=== PATIENT | male | born 1990 | race Caucasian/White ===

== ENCOUNTER 2017-03-05 15:46 | Emergency (ER) | payer OTHER ==
[2017-03-05] MEDS ORDERED: Cyclopentolate 1% Ophth Soln 5 ML Bottle EYERT ONE (15:50)
[2017-03-05 16:51] VITALS: BP 136/80
--- NOTE | 2017-03-06 05:50 | ER ---
DATE SEEN: 03/05/2017 TIME SEEN: The patient was seen at 1600 hours. HISTORY OF PRESENT ILLNESS: This 26-year-old employee of [employer] at 1430 hours on 03/04/2017 was grinding and he had a hot spark bounce off his protective glasses onto his face and then up into his right eye. His last tetanus was within the last 3 years. He had a laceration to his right distal forearm. The patient is, otherwise, healthy except for he drinks 8 cans of Mountain Dew a day. SOCIAL HISTORY: The patient smokes. PAST MEDICAL HISTORY: No diabetes, heart disease, high blood pressure, asthma, allergies, or other serious illnesses. MEDICATIONS: None. PHYSICAL EXAMINATION: VITAL SIGNS: Blood pressure 152/88, heart rate 80, respirations 14, oxygen saturation 100% on room air, and temperature 36.6 degrees centigrade. HEENT: The patient has scleral injection. Pupils do react to light. EOMs normal. On ophthalmoscopic examination, the retina is normal. The lens is normal. EMERGENCY ROOM COURSE: Right 4 o'clock position corneal foreign body demonstrates as black. With the patient's permission, the foreign body was removed with Algerbrush after adequate topical tetracaine anesthesia. The patient tolerated the procedure well. He warned me that he has panic attacks. After 3 brushings of his eye, he got up and walked up and down the hallway because of his anxiety, then he came back, hyperventilated, finished his hyperventilation. Again once more, additional burring of the corneal surface was performed. All of the visible iron stain was removed. There was a small pit at the 4 o'clock position where this was removed. There was no foreign body that was removed. ASSESSMENT: Right eye spark burn to corneal tissue with foreign body and residual iron stain removal using an Algerbrush without complications. PLAN: Follow up with doctor in 24 hours. The patient received 1 dose of Cyclogyl 1 drop and a dose of gentamicin ointment. The patient will take these medicines home and keep in his pocket. Do not use the medicines tonight. Bring them when he sees the doctor and/or healthcare provider tomorrow, 03/05/2017. His tetanus is up-to-date. /[id number] GINNY
== END 2017-03-05 16:45 | disposition home or self-care (01) ==
LOC: FB.ED 15:46
DX: T15.01XA Foreign body in cornea, right eye, initial encounter (principal); X19.XXXA Contact with other heat and hot substances, initial encounter
CPT/HCPCS: 99283; A9270-GY

== ENCOUNTER 2021-09-17 07:26 | Emergency (ER) | payer OTHER ==
--- NOTE | 2021-09-17 08:37 | EDM.PDOC ---
ED HPI GENERAL MEDICAL PROBLEM - General Chief Complaint: Upper Extremity Injury/Pain Stated Complaint: RT THUMB INJURY Time Seen by Provider: 09/17/21 07:35 Source of Information: Reports: Patient History Limitations: Reports: No Limitations - History of Present Illness INITIAL COMMENTS - FREE TEXT/NARRATIVE: Patient presented to the ED because of right thumb injury. A conveyor belt run through his rt thumb and sustained a 3 cm laceration. He is able to flex and extend the rt thumb without any difficulty. Right Finger-Thumb Pain Score (Numeric/FACES): 4 - Related Data Allergies Allergy/AdvReac Type Severity Reaction Status Date / Time Penicillins Allergy Anaphylactic Verified 03/05/17 16:38 Shock Home Meds: Home Meds NK [No Known Home Meds] 03/05/17 [History] Past Medical History Psychiatric History: Reports: Anxiety - Infectious Disease History Infectious Disease History: Reports: Chicken Pox Social & Family History - Caffeine Use Caffeine Use: Reports: Soda Review of Systems - Review of Systems Review Of Systems: See Below Constitutional: Reports: No Symptoms Eyes: Reports: No Symptoms Ears: Reports: No Symptoms Nose: Reports: No Symptoms Mouth/Throat: Reports: No Symptoms Respiratory: Reports: No Symptoms Cardiovascular: Reports: No Symptoms GI/Abdominal: Reports: No Symptoms Genitourinary: Reports: No Symptoms Musculoskeletal: Reports: No Symptoms Skin: Reports: Wound Neurological: Reports: No Symptoms Psychiatric: Reports: No Symptoms ED EXAM, GENERAL - Physical Exam Exam: See Below Exam Limited By: No Limitations General Appearance: Alert, No Apparent Distress Ears: Normal External Exam, Normal Canal Nose: Normal Inspection, Normal Mucosa, No Blood Throat/Mouth: Normal Inspection, Normal Lips, Normal Teeth, Normal Oropharynx, Normal Voice Head: Atraumatic, Normocephalic Neck: Normal Inspection, Supple, Non-Tender, Full Range of Motion Respiratory/Chest: No Respiratory Distress, Lungs Clear, Normal Breath Sounds, No Accessory Muscle Use, Chest Non-Tender Cardiovascular: Normal Peripheral Pulses, Regular Rate, Rhythm, No Edema, No Gallop, No JVD, No Murmur, No Rub GI/Abdominal: Normal Bowel Sounds, Soft, Non-Tender, No Organomegaly, No Distention, No Abnormal Bruit Back Exam: Normal Inspection, Full Range of Motion Extremities: Normal Inspection, Normal Range of Motion, Non-Tender, No Pedal Edema, Normal Capillary Refill Neurological: Alert, Oriented, CN II-XII Intact, Normal Cognition, Normal Reflexes ED TRAUMA EXTREMITY PROCEDURES - Laceration/Wound Repair Right Digit - 1st (Thumb) Lac/Wound Length In cm: 3 Appearance: Subcutaneous Distal NVT: Neuro & Vascular Intact Anesthetic Type: Local Local Anesthesia - Lidocaine (Xylocaine): 2% Plain Local Anesthetic Volume: 2cc Skin Prep: Chlorhexidine (Hibiciens) Exploration/Debridement/Repair: Wound Explored Closed With: Sutures Suture Size: 3-0 Suture Type: Silk # of Sutures: 5 Course - Vital Signs Text/Narrative:: UTD with immunization Xray left thumb-negative Last Recorded V/S: Last Vital Signs Temp 36.8 C 09/17/21 07:26 Pulse 78 09/17/21 08:45 Resp 20 09/17/21 08:45 BP 134/78 09/17/21 08:45 Pulse Ox 100 09/17/21 08:45 Departure - Departure Time of Disposition: 20:35 Disposition: Home, Self-Care 01 Condition: Good Clinical Impression: Laceration - Discharge Information Instructions: Laceration Care, Adult, [id number] Referrals: Sebastian Whelan MD [Primary Care Provider] - Forms: ED Department Discharge Additional Instructions: Please read discharge instructions on laceration/wound care Do not cover your wound when you're inside the house, air dry it Watch for infection: increasing redness,swelling, pain, ous diachrage, fever. Please read complete list. Removal of suture in 10 days. Sepsis Event Note (ED) - Evaluation Sepsis Screening Result: No Definite Risk
[2021-09-17 08:58] VITALS: BP 134/78; PULSE 78
--- NOTE | 2021-09-17 11:09 | CR ---
RIGHT HAND INDICATION: Work injury with laceration on thumb. FINDINGS: Three views of the right hand were obtained 09/17/21 and revealed no evidence of an acute fracture, dislocation or other significant bone or joint abnormality. Soft tissue injury is noted at the mid portion of the thumb compatible with history of laceration. If symptoms persist - if occult fracture or impaction is suspected clinically reexamination in 10 to 14 days may be helpful. MTDD
== END 2021-09-17 08:50 | disposition home or self-care (01) ==
LOC: FB.ED 07:26
DX: S61.011A Laceration without foreign body of right thumb without damage to nail, initial encounter (principal); Z88.0 Allergy status to penicillin; W23.0XXA Caught, crushed, jammed, or pinched between moving objects, initial encounter
CPT/HCPCS: 12002; 73130-RT; 99000; 99283-25